=== PATIENT | male | born 1990 | race Caucasian/White ===

== ENCOUNTER 2024-12-10 23:43 | Emergency (ER) | payer OTHER ==
[2024-12-10 23:47] VITALS: RESP 18
--- NOTE | 2024-12-11 00:55 | XR ---
EXAM: XR Right Fingers, 2 or More Views CLINICAL HISTORY: ITS.REASON XR Reason: injury TECHNIQUE: Frontal, lateral and oblique views of the fingers of the right hand. COMPARISON: No relevant prior studies available. FINDINGS: Bones/joints: Nondisplaced fracture of the 3rd finger distal tuft. No dislocation. Soft tissues: Unremarkable. No radiopaque foreign body. IMPRESSION: Nondisplaced fracture of the 3rd finger distal tuft.
--- NOTE | 2024-12-11 01:46 | ED ---
General Adult HPI - General Chief complaint: Skin/Abscess/Foreign Body Stated complaint: Finger Laceration Time Seen by Provider: 12/11/24 00:03 Source: patient Mode of arrival: ambulatory Limitations: no limitations - History of Present Illness Initial comments: 34-year-old male presenting with chief complaint of finger injury. Patient slammed the tip of his right 3rd finger onto an attachment to his truck today. This caused the nailbed to be completely abraded. Patient states that he tried pulling the rest of the nail off but then noticed what may be a piece of bone so he came to the ER for further evaluation. Bleeding is under control. Unsure when his last tetanus shot was. He has full range of motion. - Related Data Previous Rx's Medication Instructions Recorded Cephalexin [Keflex] 500 mg PO Q6HR 7 Days #28 cap 12/11/24 Allergies Allergy/AdvReac Type Severity Reaction Status Date / Time No Known Allergies Allergy Verified 12/10/24 23:47 Review of Systems ROS Statement: Those systems with pertinent positive or pertinent negative responses have been documented in the HPI. ROS Other: All systems not noted in ROS Statement are negative. Past Medical History Past Medical History: No Reported History History of Any Multi-Drug Resistant Organisms: None Reported Past Surgical History: No Surgical Hx Reported Past Psychological History: No Psychological Hx Reported Smoking Status: Never smoker Past Alcohol Use History: None Reported Past Drug Use History: None Reported General Exam Limitations: no limitations General appearance: alert, in no apparent distress Head exam: Present: atraumatic, normocephalic, normal inspection Eye exam: Present: normal appearance, EOMI Neck exam: Present: normal inspection. Absent: meningismus Respiratory exam: Absent: respiratory distress Cardiovascular Exam: Present: regular rate Extremities exam: Present: other (The right third finger is significantly swollen, patient does have full range of motion. The nailbed has been comple tely uprooted, there is some distal attachment remaining.) Neurological exam: Present: alert, oriented X3 Psychiatric exam: Present: normal affect, normal mood Course Vital Signs 12/10/24 12/11/24 23:45 02:05 Temperature 98.6 F 98.4 F Pulse Rate 80 81 Respiratory 18 18 Rate Blood Pressure 162/90 150/70 O2 Sat by Pulse 97 99 Oximetry Medical Decision Making - Medical Decision Making Was pt. sent in by a medical professional or institution (Dr., PA, PAINTINGS RESTORER, urgent care, hospital, or senior care...) When possible be specific @ -No Did you speak to anyone other than the patient for history (EMS, parent, family, police, friend...)? What history was obtained from this source @ -No Did you review nursing and triage notes (agree or disagree)? Why? @ -I reviewed and agree with nursing and triage notes Were old charts reviewed (outside hosp., previous admission, EMS record, old EKG, old radiological studies, urgent care reports/EKG's, senior care records)? Report findings @ -No old charts were reviewed Differential Diagnosis (chest pain, altered mental status, abdominal pain women, abdominal pain men, vaginal bleeding, weakness, fever, dyspnea, syncope, headache, dizziness, GI bleed, back pain, seizure, CVA, palpatations, mental health, musculoskeletal)? @ -Differential includes fracture, dislocation, sprain, strain, not an all- inclusive list EKG interpreted by me (3pts min.). @ -As above X-rays interpreted by me (1pt min.). @ -X-ray shows nondisplaced fracture of the third finger distal tuft CT interpreted by me (1pt min.). @ -None done U/S interpreted by me (1pt. min.). @ -None done What testing was considered but not performed or refused? (CT, X-rays, U/S, labs)? Why? @ -None What meds were considered but not given or refused? Why? @ -None Did you discuss the management of the patient with other professionals (professionals i.e. DEVAN Jackman, PAINTINGS RESTORER, lab, RT, psych nurse, bilingual social worker, sheet metal duct installer helper, teacher, chief learning officer, nurse outreach case manager)? Give summary @ -No Was smoking cessation discussed for >3mins.? @ -No Was critical care preformed (if so, how long)? @ -No Were there social determinants of health that impacted care today? How? (Homelessness, low income, unemployed, alcoholism, drug addiction, transportation, low edu. Level, literacy, decrease access to med. care, fci, rehab)? @ -No Was there de-escalation of care discussed even if they declined (Discuss DNR or withdrawal of care, Hospice)? DNR status @ -No What co-morbidities impacted this encounter? (DM, HTN, Smoking, COPD, CAD, Cancer, CVA, ARF, Chemo, Hep., AIDS, mental health diagnosis, sleep apnea, morbid obesity)? @ -None Was patient admitted / discharged? Hospital course, mention meds given and route, prescriptions, significant lab abnormalities, going to OR and other pertinent info. @Injury to the right third finger earlier today at work. The patient's nail came completely out from under the skin. X-ray shows nondisplaced fracture of the third finger distal tuft. Digital block is performed and the nail is pushed back into the best of my ability. To the wound is then wrapped in a bulky dressing. Patient is started on Keflex and instructed to follow-up with orthopedics. Follow-up with PCP. Report back to ER with any new or worsening symptoms. Discussed return parameters and answered all questions. Patient conveyed verbal understanding and agreed to the plan. I discussed this case in detail with my attending Dr. Chan Undiagnosed new problem with uncertain prognosis? @ -No Drug Therapy requiring intensive monitoring for toxicity (Heparin, Nitro, Insulin, Cardizem)? @ -No Were any procedures done? @ -No Diagnosis/symptom? @ -Open fracture of the third distal phalanx Acute, or Chronic, or Acute on Chronic? @ -Acute Uncomplicated (without systemic symptoms) or Complicated (systemic symptoms)? @ -Uncomplicated Side effects of treatment? @ -No Exacerbation, Progression, or Severe Exacerbation? @ -No Poses a threat to life or bodily function? How? (Chest pain, [place], DC, pneumonia, PE, COPD, DKA, ARF, appy, cholecystitis, CVA, Diverticulitis, Homicidal, Suicidal, threat to staff... and all critical care pts) @ -Potentially if the patient does not adhere to proper follow-up with ortho pedics Disposition Clinical Impression: Open fracture of distal phalanx Disposition: HOME SELF-CARE Condition: Fair Instructions (If sedation given, give patient instructions): Finger Fracture (ED) Additional Instructions: Follow-up with orthopedics. Report back to ER with any new or worsening symptoms. Keep the wound clean dry and covered. Take your antibiotics as prescribed. Prescriptions: Cephalexin [Keflex] 500 mg PO Q6HR 7 Days #28 cap Is patient prescribed a controlled substance at d/c from ED?: No Referrals: None,Stated [Primary Care Provider] - 1-2 days Kenny Lazo DO [Doctor of Osteopathic Medicine] - 1-2 days Time of Disposition: 01:46
[2024-12-11] MEDS: ACET/COD 300 MG/30 MG STARTER PACK 6 TAB BTL PO STA (01:56)
[2024-12-11] MEDS: CEPHALEXIN 500 MG CAP PO STA (01:56)
[2024-12-11] MEDS: DIPH,PERTUS(ACELL)TETVAC-LF 0.5 ML VIAL IM ONE (01:58)
[2024-12-11 02:07] VITALS: BP 150/70; PULSE 81; TEMP 98.4
== END 2024-12-11 02:06 | disposition home or self-care (01) ==
LOC: EC 23:43
DX: S62.632B Displaced fracture of distal phalanx of right middle finger, initial encounter for open fracture (principal); Z23 Encounter for immunization; W23.0XXA Caught, crushed, jammed, or pinched between moving objects, initial encounter
CPT/HCPCS: 90471; 90715; 99283